=== PATIENT | female | born 1945 | race Caucasian/White ===

== ENCOUNTER 2018-01-23 08:57 | Emergency (ER) | payer MEDICARE, MEDICAID ==
[~2018-01-23] VITALS: Ht 175.3 cm; Wt 79.5 kg
[2018-01-23] MEDS ORDERED: htn PO (09:07)
[2018-01-23] MEDS ORDERED: MORPHINE SULFATE 4 MG/ML SYRINGE IVP ONE (10:45)
[2018-01-23] MEDS ORDERED: KETOROLAC TROMETHAMINE 30 MG/ML VIAL IVP ONE (10:45)
[2018-01-23 11:40] VITALS: BP 108/59
== END 2018-01-23 12:26 | disposition home or self-care (01) ==
LOC: EMS 08:58
DX: M54.42 Lumbago with sciatica, left side (principal); I10 Essential (primary) hypertension; Z90.710 Acquired absence of both cervix and uterus
CPT/HCPCS: 96374; 96375; 99284; J1885; J2270